=== PATIENT | male | born 1965 | race Caucasian/White ===

== ENCOUNTER 2017-03-30 01:37 | Inpatient (IN) ==
[2017-03-30] MEDS ORDERED: Ondansetron ODT 4 MG TAB.RAPDIS SL ONE (02:33)
[2017-03-30] MEDS ORDERED: 0.9 % Sodium Chloride 1,000 ML IVC ONE (02:34)
[2017-03-30] MEDS ORDERED: Ondansetron 4 MG/2 ML VIAL IVP ONE (02:34)
[2017-03-30 03:04] LABS: Basophils # 0.1 K/mcL (0.0-0.2); Basophils % 0.2 %; Hematocrit 44.9 % (37.5-50.1); Hemoglobin 15.2 g/dL (12.9-16.9); Immature Granulocytes % 0.7 % (0-4); Lymphocytes # 1.2 K/mcL (0.6-4.6); Mean Corpuscular HGB Conc 33.9 g/dL (31.6-35.5); Mean Corpuscular Hemoglobin 28.4 pg (28.0-33.3); Mean Corpuscular Volume 83.9 fL (83.0-100.0); Mean Platelet Volume 9.7 fL (9.4-12.4); Monocytes # 0.6 K/mcL (0.0-1.3); Monocytes % 2.4 %; Platelet Count 195 K/mcL (140-400); Red Blood Count 5.35 M/mcL (4.19-5.50); Red Cell Distribution Width 13.1 % (11.5-14.5); Segmented Neutrophils % 91.7 %
[2017-03-30 03:07] LABS: Neutrophils # 22.7 K/mcL (1.6-8.9)
[2017-03-30 03:22] LABS: Alanine Aminotransferase 57 Units/L (0-55); Albumin 3.9 g/dL (3.5-5.0); Albumin/Globulin Ratio 0.9 (1.1-2.2); Alkaline Phosphatase 102 Units/L (38-126); Aspartate Amino Transferase 35 Units/L (5-34); BUN/Creatinine Ratio 16 (6-26); Bilirubin,Direct 0.3 mg/dL (0.0-0.5); Bilirubin,Indirect 0.4 mg/dL (0.0-1.2); Bilirubin,Total 0.7 mg/dL (0.2-1.2); Blood Urea Nitrogen 16 mg/dL (8-26); Calcium 10.1 mg/dL (8.6-10.8); Carbon Dioxide 24 mEq/L (19-29); Chloride 102 mEq/L (98-109); Globulin 4.3 g/dL (2.4-3.5); Glucose 168 mg/dL (70-99); Osmolality,Calculated 285 (280-300); Potassium 4.2 mEq/L (3.5-4.5); Sodium 135 mEq/L (136-145); Total Protein 8.2 g/dL (6.0-8.3); eGFR For African Americans > 60 (> 60); eGFR For Non-African Americans > 60 (> 60)
[2017-03-30 03:23] LABS: Lipase < 10 Units/L (8-78); Platelet Estimate Normal (Normal)
[2017-03-30] MEDS ORDERED: Aspirin 81 MG TAB.CHEW PO STA (03:37)
[2017-03-30] MEDS ORDERED: *HR* Morphine 2 MG/ML SYRINGE IVP ONE (03:40)
[2017-03-30] MEDS ORDERED: *HR* Heparin 5,000 UNIT/ML VIAL IVP ONE (03:41)
[2017-03-30] MEDS ORDERED: *HR* Heparin 5,000 UNIT/ML VIAL IVP PRN ×2 (03:41)
[2017-03-30] MEDS ORDERED: Heparin 25,000 UNIT/500 ML D5W 25,000 UNIT/500 ML MLS IVC SCH (03:45)
--- NOTE | 2017-03-30 03:49 | Emergency Department Note ---
Disposition Clinical Impression: NSTEMI (non-ST elevated myocardial infarction), Splenic infarct Abdominal pain Qualifiers: Abdominal location: left upper quadrant Qualified Code(s): R10.12 - Left upper quadrant pain Disposition: Admitted As Inpatient Condition: Serious Time of Disposition: 04:57 Abdominal Pain HPI - General Chief Complaint: ED Abdominal Pain Stated Complaint: Pain in chest/abd Time Seen by Provider: 03/30/17 03:30 Source: patient Nursing Notes Reviewed: Yes Vital Signs Reviewed: Yes - History of Present Illness HPI Narrative: 51-year-old male presents to the emergency department with a complaint of severe left flank and left upper abdominal pain. Patient states that about 6 PM this evening he started feeling bad. Initially he just had pain throughout his head and both shoulders. It then moved down into his neck and back and chest. The pain then moved down into the epigastric area and left upper quadrant and left flank. He complains of a lot of nausea and belching. No productive vomiting. No shortness of breath or diaphoresis. No palpitations. No prior cardiac history. Patient does admit to heroin use. Pt Subjective Complaint: abdominal pain, flank pain, other (Head and shoulders and chest pain) Onset (ago): hour(s) (7) Consistency: constant, Worsening Location: LUQ, epigastric, L flank Pain Severity: moderate Pain Scale: 7 Quality: aching, dull, burning Radiation: none Migration to: L flank Improves with: nothing Worsens with: nothing Associated symptoms: Reports: nausea. Denies: vomiting, diarrhea, fever, chills , constipation, dysuria, hematemesis, hematochezia, melena, hematuria, anorexia , syncope Treatments prior to arrival: none - Related Data Previous Rx's Medication Instructions Recorded Clindamycin HCl [Cleocin HCl] 300 mg PO QID #40 capsule 05/17/16 cephALEXin [Keflex] 500 mg PO QID #40 capsule 05/17/16 Allergies Allergy/AdvReac Type Severity Reaction Status Date / Time No Known Allergies Allergy Verified 03/30/17 01:44 All systems ED: reviewed and negative except as stated. Constitutional: Denies: fever, chills, weakness ENT ED: Denies: ear pain, throat pain Cardiovascular: Reports: chest pain. Denies: palpitations, dyspnea on exertion , edema, syncope Respiratory: Denies: cough, dyspnea, wheezes, hemoptysis Gastrointestinal: Reports: abdominal pain, nausea. Denies: vomiting, diarrhea, constipation, hematemesis, melena, hematochezia Genitourinary: Denies: dysuria, frequency, hematuria Musculoskeletal: Reports: back pain, neck pain Integumentary: Denies: rash Neurological: Reports: headache. Denies: weakness, numbness, paresthesias, confusion Psychiatric: Denies: anxiety, depression Endocrine: Denies: fatigue Hematological/Lymphatic: Denies: easy bleeding, easy bruising, lymphadenopathy Abdominal Pain PMH - Past Medical History Medical history: Reports: hepatitis Male Surgical History: Reports: herniorrhaphy, orthopedic, other Psychiatric history: Reports: no psych history - Social History Smoking status: Current every day smoker Alcohol use: Reports: none Drug use: Reports: IV Drug Use Physical Exam - General Limitations: no limitations General appearance: alert, in no apparent distress - Head Head exam: atraumatic, normocephalic, normal inspection - Eye Eye exam: Present: normal appearance, PERRL, EOMI. Absent: scleral icterus, conjunctival injection - ENT ENT exam: normal exam, normal oropharynx, mucous membranes moist, TM's normal bilaterally, normal external ear exam - Neck Neck exam: Present: normal inspection, full ROM, trachea midline. Absent: tenderness, meningismus, lymphadenopathy - Chest Chest inspection: Present: normal inspection, symmetric chest wall rise. Absent : tenderness - Respiratory Respiratory exam: Present: normal lung sounds bilaterally. Absent: respiratory distress, wheezes, stridor, accessory muscle use - Cardiovascular Cardiovascular exam: Present: regular rate, normal rhythm, normal heart sounds - Abdominal Exam Abdominal exam: Present: soft, tenderness, hyperactive bowel sounds. Absent: distention, guarding, rebound, rigidity Abdominal tenderness: Present: LUQ, epigastrium, moderate - Extremities Exam Extremities exam: Present: normal inspection, full ROM. Absent: tenderness, pedal edema - Back Exam Back exam: Present: normal inspection, CVA tenderness (L). Absent: CVA tenderness (R) - Neurological Exam Neurological exam: Present: alert, oriented X3. Absent: motor sensory deficit - Psychiatric Psychiatric exam: Present: normal affect, normal mood - Skin Skin exam: Present: warm, dry, intact, normal color. Absent: cyanosis, diaphoresis Course Course Narrative: Patient presented with pain that started in his head and shoulders and moved down into the chest and into the epigastric area and left flank. Nausea with some dry heaves and belching. Workup revealed an elevated troponin. No acute changes on the initial EKG. Repeat EKG normal. - Consultations Consultation #1: He hospitalist, Dr. Mora, was consulted and accepted admission of the patient. Time: 04:45 Consultation #2: Advised Dr. Mora of the CT results. Patient already on heparin drip. Time: 06:45 Vital Signs Temperature 97.6 F 03/30/17 01:40 Pulse Rate 67 03/30/17 01:40 Respiratory Rate 18 03/30/17 01:40 Blood Pressure 131/82 03/30/17 01:40 O2 Sat by Pulse Oximetry 98 03/30/17 01:40 Temperature 97.6 F 03/30/17 01:40 Pulse Rate 67 03/30/17 01:40 Respiratory Rate 18 03/30/17 01:40 Blood Pressure 131/82 03/30/17 01:40 O2 Sat by Pulse Oximetry 98 03/30/17 01:40 Oxygen Delivery Oxygen Delivery Room Air Abdominal Pain - Medical Records Medical records reviewed: Yes I reviewed the patient's medical records. - Lab Data Lab results reviewed: Yes I reviewed the patient's lab results. Result diagrams: 03/30/17 02:55 03/30/17 02:55 Lab Results 03/30/17 03/30/17 03/30/17 Range/Units 02:10 02:55 02:55 WBC 24.7 H (4.3-11.1) K/mcL RBC 5.35 (4.19-5.50) M/mcL Hgb 15.2 (12.9-16.9) g/dL Hct 44.9 (37.5-50.1) % MCV 83.9 (83.0-100.0) fL MCH 28.4 (28.0-33.3) pg MCHC 33.9 (31.6-35.5) g/dL RDW 13.1 (11.5-14.5) % Plt Count 195 (140-400) K/mcL MPV 9.7 (9.4-12.4) fL Immature Gran % 0.7 (0-4) % Seg Neutrophils % 91.7 % Lymphocytes % 5.0 % Monocytes % 2.4 % Eosinophils % 0.0 % Basophils % 0.2 % Neutrophils # 22.7 H (1.6-8.9) K/mcL Lymphocytes # 1.2 (0.6-4.6) K/mcL Monocytes # 0.6 (0.0-1.3) K/mcL Eosinophils # 0.0 (0.0-0.6) K/mcL Basophils # 0.1 (0.0-0.2) K/mcL Platelet Estimate Normal (Normal) PT (9.4-12.1) Seconds INR APTT (26.0-36.0) Seconds Sodium 135 L (136-145) mEq/L Potassium 4.2 (3.5-4.5) mEq/L Chloride 102 (98-109) mEq/L Carbon Dioxide 24 (19-29) mEq/L BUN 16 (8-26) mg/dL Creatinine 0.98 (0.72-1.25) mg/dL Est GFR ( Amer) > 60 (> 60) Est GFR (Non-Af Amer) > 60 (> 60) BUN/Creatinine Ratio 16 (6-26) Glucose 168 H (70-99) mg/dL Calculated Osmolality 285 (280-300) Calcium 10.1 (8.6-10.8) mg/dL Total Bilirubin 0.7 (0.2-1.2) mg/dL Direct Bilirubin 0.3 (0.0-0.5) mg/dL Indirect Bilirubin 0.4 (0.0-1.2) mg/dL AST 35 H (5-34) Units/L ALT 57 H (0-55) Units/L Alkaline Phosphatase 102 (38-126) Units/L Troponin I (0-0.03) ng/mL Serum Total Protein 8.2 (6.0-8.3) g/dL Albumin 3.9 (3.5-5.0) g/dL Globulin 4.3 H (2.4-3.5) g/dL Albumin/Globulin Ratio 0.9 L (1.1-2.2) Lipase < 10 (8-78) Units/L Urine Color Yellow (Yellow) Urine Clarity Clear (Clear) Urine pH 6.5 (5.0-8.0) pH Units Ur Specific Lares 1.008 L (1.010-1.025) Urine Protein Negative (Neg-Trace) mg/dL Urine Glucose (UA) Normal (Normal) mg/dL Urine Ketones Negative (Negative) mg/dL Urine Blood Trace H (Negative) Urine Nitrite Negative (Negative) Urine Bilirubin Negative (Negative) Urine Urobilinogen Normal (Normal) mg/dL Ur Leukocyte Esterase Negative (Negative) Urine Microscopic RBC 0-3 (0-3) per hpf Urine Microscopic WBC 0-3 (0-3) per hpf Ur Squamous Epith Cells Many H (None-Few) per lpf Urine Bacteria Few (None-Few) per hpf Hyaline Casts None Seen (None-Few) per lpf Ur Culture Indicated? NO (NO) 03/30/17 03/30/17 Range/Units 02:55 02:55 WBC (4.3-11.1) K/mcL RBC (4.19-5.50) M/mcL Hgb (12.9-16.9) g/dL Hct (37.5-50.1) % MCV (83.0-100.0) fL MCH (28.0-33.3) pg MCHC (31.6-35.5) g/dL RDW (11.5-14.5) % Plt Count (140-400) K/mcL MPV (9.4-12.4) fL Immature Gran % (0-4) % Seg Neutrophils % % Lymphocytes % % Monocytes % % Eosinophils % % Basophils % % Neutrophils # (1.6-8.9) K/mcL Lymphocytes # (0.6-4.6) K/mcL Monocytes # (0.0-1.3) K/mcL Eosinophils # (0.0-0.6) K/mcL Basophils # (0.0-0.2) K/mcL Platelet Estimate (Normal) PT 11.6 (9.4-12.1) Seconds INR 1.1 APTT 24.6 L (26.0-36.0) Seconds Sodium (136-145) mEq/L Potassium (3.5-4.5) mEq/L Chloride (98-109) mEq/L Carbon Dioxide (19-29) mEq/L BUN (8-26) mg/dL Creatinine (0.72-1.25) mg/dL Est GFR ( Amer) (> 60) Est GFR (Non-Af Amer) (> 60) BUN/Creatinine Ratio (6-26) Glucose (70-99) mg/dL Calculated Osmolality (280-300) Calcium (8.6-10.8) mg/dL Total Bilirubin (0.2-1.2) mg/dL Direct Bilirubin (0.0-0.5) mg/dL Indirect Bilirubin (0.0-1.2) mg/dL AST (5-34) Units/L ALT (0-55) Units/L Alkaline Phosphatase (38-126) Units/L Troponin I 0.26 H* (0-0.03) ng/mL Serum Total Protein (6.0-8.3) g/dL Albumin (3.5-5.0) g/dL Globulin (2.4-3.5) g/dL Albumin/Globulin Ratio (1.1-2.2) Lipase (8-78) Units/L Urine Color (Yellow) Urine Clarity (Clear) Urine pH (5.0-8.0) pH Units Ur Specific Lares (1.010-1.025) Urine Protein (Neg-Trace) mg/dL Urine Glucose (UA) (Normal) mg/dL Urine Ketones (Negative) mg/dL Urine Blood (Negative) Urine Nitrite (Negative) Urine Bilirubin (Negative) Urine Urobilinogen (Normal) mg/dL Ur Leukocyte Esterase (Negative) Urine Microscopic RBC (0-3) per hpf Urine Microscopic WBC (0-3) per hpf Ur Squamous Epith Cells (None-Few) per lpf Urine Bacteria (None-Few) per hpf Hyaline Casts (None-Few) per lpf Ur Culture Indicated? (NO) - Radiology Data Radiology results reviewed: Yes I reviewed the patient's radiology results. Chest X-Ray 03/30/17 01:44 IMPRESSION: 1. No acute cardiopulmonary disease. D/ / Francois Parra MD / Francois Parra MD Interpreting Provider: Francois Parra MD Chest X-Ray 03/30/17 01:44 IMPRESSION: 1. No acute cardiopulmonary disease. D/ / Francois Parra MD / Francois Parra MD Interpreting Provider: Francois Parra MD Abdomen/Pelvis CT 03/30/17 04:59 IMPRESSION: 1. Geographic areas of low-attenuation in the spleen most likely represent infarct. 2. Esophageal wall thickening suggests esophagitis. 3. Urinary bladder wall thickening may indicate outlet obstruction given the presence of an enlarged prostate gland. D/ / Jagjit Spivey MD / Jagjit Spivey MD Interpreting Provider: Jagjit Spivey MD - EKG Data EKG attestation: Yes I reviewed and interpreted this EKG. EKG results narrative: Initial EKG shows a normal sinus rhythm with a heart rate of 71. There is questionable slight ST elevation in the inferior leads but less than 1 mm with no reciprocal changes. A repeat EKG 2 hours after the initial EKG is normal with no hint of inferior ST elevation. EKG shows normal: sinus rhythm Rate: normal Rhythm: NSR Interpretation: no acute changes, normal EKG Critical Care Time Critical Care Time: Yes Total Critical Care Time: 60 Attestation: Critical care performed: Time is exclusive of separately billable procedures. Time includes: direct patient care, patient reassessment, coordination of patient care, interpretation of data (laboratory data, radiology data, and respiratory data), review of patient's medical records, medical consultation and documentation of patient care. Procedures included in critical care time: Procedures excluded from critical care time:
[2017-03-30 03:56] LABS: INR 1.1; Prothrombin Time 11.6 Seconds (9.4-12.1)
[2017-03-30 03:58] LABS: Activated Partial Thrombo Time 24.6 Seconds (26.0-36.0)
[2017-03-30] MEDS ORDERED: GI Cocktail 40 ML EACH PO ONE ×2 (04:06→07:58)
[2017-03-30] MEDS ORDERED: *HR* HYDROmorphone (PF) 1 MG/ML SYRINGE IVP ONE (04:07)
[2017-03-30 04:54] LABS: Bilirubin,Urine Negative (Negative); Blood,Urine Trace (Negative); Clarity,Urine Clear (Clear); Color,Urine Yellow (Yellow); Glucose,Urine (UA) Normal (Normal); Ketones,Urine Negative (Negative); Leukocyte Esterase,Urine Negative (Negative); Nitrite,Urine Negative (Negative); PH,Urine 6.5 pH Units (5.0-8.0); Protein,Urine Negative (Neg-Trace); Specific Gravity,Urine 1.008 (1.010-1.025); Urobilinogen,Urine Normal (Normal)
[2017-03-30 04:57] LABS: Bacteria,Urine Few per hpf (None-Few); Hyaline Casts,Urine None Seen per lpf (None-Few); RBC,Urine 0-3 per hpf (0-3); Squamous Epithelial Cell,Urine Many per lpf (None-Few); WBC,Urine 0-3 per hpf (0-3)
[2017-03-30] MEDS ORDERED: Ondansetron 4 MG/2 ML VIAL IVP PRN (05:47)
[2017-03-30] MEDS ORDERED: Naloxone 0.4 MG/ML INJ IVP PRN (05:47)
[2017-03-30] MEDS ORDERED: *HR* OxyCODONE Immed Rel 5 MG TABLET PO PRN (05:47)
[2017-03-30] MEDS ORDERED: Nitroglycerin 0.4 MG TAB.SUBL SL ONE (07:57)
[2017-03-30] MEDS ORDERED: Nitroglycerin 0.4 MG TAB.SUBL SL PRN (07:59)
[2017-03-30] MEDS ORDERED: Nitroglycerin 25 MG/250 ML INFUS..BTL IVC SCH (08:00)
--- NOTE | 2017-03-30 08:01 | Cardiology Consult Note ---
<Liz Jain - Last Filed: 03/30/17 11:27> Date of Encounter: 03/30/17 Time of Encounter: 07:45 Assessment and Plan (1) Elevated troponin Current Visit: Yes Status: Acute Troponin 0.26, 1.55 in the setting of suspected acute endocarditis. No ischemic ECG changes. Reports epigastric burning and severe left flank/lower quadrant pain. CT abdomen demonstrated splenic infarcts. Recommend CT of head--will defer to primary service. Agree with IV heparin gtt. Await TTE findings to determine if STEVE is indicated. Agree with BLC and antibiotics. No indication for cardiac rehab at this juncture. (2) Splenic infarct Current Visit: Yes Status: Acute Likely secondary to endocarditis. (3) IV drug abuse Current Visit: Yes Status: Chronic Recommend CIWA protocol, will defer to hospitalist service. Reports last use of heroin was last night. Discussion w patient/family: The assessment and plan as outlined above was discussed with the patient and/or family members who expressed understanding and agreement. All questions were answered. Thank you for involving us in the care of your patient. Please call with any questions. The patient will be discussed and reviewed with Dr. Amado; changes to be made accordingly. History of Present Illness Consult date: 03/30/17 Requesting physician: Duane Garcia Consult reason: Elevated troponin Chief complaint: Epigastric pain History of present illness: Mr. Garcia is a 51 year old male with PMHx significant for GERD, chronic hepatitis C, tobacco use, and IVDA who presented to the ED with acute onset of epigastric/left-sided abdominal pain. He reports an episode of chest discomfort with bilateral arm pain yesterday that resolved without intervention. Upon arrival to ED initial troponin 0.26, no ischemic ECG changes were noted. GI cocktail given without improvement in epigastric pain/burning. He admits to daily IVDA with heroin. Pain was not improved with NTG. Past Med Surg Social Fam HX - Past Medical History Attestation: Yes The following information was validated with the patient. Source: patient Medical history: GERD, hepatitis Psychiatric history: no psych history - Past Surgical History Surgical History: non-contributory - Social History Smoking Status: Current every day smoker Packs per day: 1 ppd x30+ years Smokeless Tobacco Status: Yes Alcohol use: none Drug use: IV Drug Use Medications and Allergies No Known Home Drugs 03/30/17 [History] Allergies No Known Allergies Allergy (Verified 03/30/17 01:44) All Systems Review: A 10-system review of systems was performed and is negative for pertinent findings except as documented above in the HPI. - Cardiovascular Cardiovascular: as per HPI Physical Examination Vital Signs, Last 4 Hours Temp Pulse Resp BP Pulse Ox 03/30/17 07:31 98.6 F 69 18 159/96 99 03/30/17 06:59 18 143/96 General: Conversant HEENT: Atraumatic, Normocephaly Cardiac: Reg Rate and Rhythm, Normal S1 and S2 Lungs: Normal Breath Sounds Neuro: Alert and responsive Abdomen: Soft, Other (abdomen tender x4 quadrants) Extremities: No Edema, Normal Pulses, Other (scars left forearm, track fiore noted. ) Results 03/30/17 02:55 03/30/17 02:55 Active Medications Aspirin (Aspirin Ec) 81 mg PO DAILY [facility]IP[facility] Stop: 09/30/17 09:01 Atorvastatin Calcium (Lipitor) 40 mg PO HS [facility] Stop: 09/29/17 21:01 Heparin Sodium (Porcine) (Heparin) 4,000 unit IVP Q6HR PRN PRN Reason: SEE COMMENTS Stop: 09/29/17 03:42 Heparin Sodium (Porcine) (Heparin) 2,000 unit IVP Q6H PRN PRN Reason: SEE COMMENTS Stop: 09/29/17 03:42 Heparin Sodium/Dextrose (Heparin 25,000 Unit/500 Ml D5w) 25,000 unit in 500 mls @ 20.684 mls/hr IVC .Q24H PHILIPPE; 12 UNIT/KG/HR PRN Reason: Protocol Stop: 09/29/17 03:46 Last Admin: 03/30/17 04:03 Dose: 12 unit/kg/hr, 20.684 mls/hr Nitroglycerin (Nitroglycerin) 25 mg in 250 mls @ 3 mls/hr IVC .Q24H PHILIPPE; 5 MCG/ MIN PRN Reason: Protocol Stop: 09/29/17 08:01 Last Admin: 03/30/17 08:42 Dose: 5 mcg/min, 3 mls/hr Sodium Chloride (0.9 % Sodium Chloride) 1,000 mls @ 100 mls/hr IVC .Q10H [facility] Stop: 01/07/18 08:46 Vancomycin HCl 1,500 mg/ (Dextrose) 250 mls @ 166.67 mls/hr IVPB Q12H [facility] Stop: 09/29/17 11:01 Morphine Sulfate (Morphine Sulfate) 2 mg IVP Q4HR PRN PRN Reason: Severe Pain (7-10) Stop: 09/29/17 05:48 Last Admin: 03/30/17 08:07 Dose: 2 mg Naloxone HCl (Narcan) 0.4 mg IVP Q2MIN PRN PRN Reason: Opioid Reversal Stop: 09/29/17 05:48 Nicotine (Nicoderm) 21 mg TD DAILY [facility]IP[facility] PRN Reason: Protocol Stop: 09/29/17 09:01 Nitroglycerin (Nitroglycerin) 0.4 mg SL Q5MIN PRN PRN Reason: Chest Pain Stop: 09/29/17 08:00 Last Admin: 03/30/17 08:07 Dose: 0.4 mg Ondansetron HCl (Zofran) 4 mg IVP Q6HR PRN PRN Reason: Nausea And Vomiting Stop: 09/29/17 05:48 Pantoprazole Sodium (Protonix) 40 mg IVP DAILY [facility] Stop: 09/29/17 09:01 - Imaging and Cardiology Echo: pending - EKG Interpretation EKG results cardiology: personally reviewed Consult Discharge Plan - Plan Referrals: NO,PCP [Primary Care Provider] - <Chuyita Amado - Last Filed: 03/30/17 12:22> Date of Encounter: 03/30/17 Assessment and Plan Discussion w patient/family: The assessment and plan as outlined above was discussed with the patient and/or family members who expressed understanding and agreement. All questions were answered. Thank you for involving us in the care of your patient. Please call with any questions. History of Present Illness History of present illness: Mr. Garcia is a 51 year old male All Systems Review: A 10-system review of systems was performed and is negative for pertinent findings except as documented above in the HPI. Physical Examination Vital Signs, Last 4 Hours Temp Pulse Resp BP Pulse Ox 03/30/17 11:48 99.4 F 56 18 125/62 98 Results 03/30/17 02:55 03/30/17 02:55 Lab Results 03/30/17 03/30/17 03/30/17 08:20 08:20 08:20 APTT 45.6 H D Magnesium 2.0 Troponin I 1.55 H* B-Natriuretic Peptide 03/30/17 08:20 APTT Magnesium Troponin I B-Natriuretic Peptide 47 - Attending Attestation I examined this patient and my medical decision-making was reviewed with the BANKING SERVICES CLERK/PA/Advanced Practice Nurse/Resident Physician. I agree with the documented findings, disposition and treatment plan. Mr. Garcia presents with chest and abdominal pain associated with elevated troponin and leukocytosis along with splenic infarcts on CT Ab/P. This is in the setting of active IVDU, admitting to heroin use daily. Elevated troponin in this setting and the clinical picture is strongly suggestive of endocarditis. I reviewed his echo demonstrating normal LV EF without SWMA. There are no mobile echodensities seen attached to the valves and no significant regurgitation. However, the ascending aorta is echogenic and there is an echodensity along the anterior wall of the proximal ascending aorta. The aortic valve is focally sclerotic. These findings suggest aortic root abscess. This was discussed with the Hospitalist taking care of the patient, Dr. Fox. I suggested performing a chest CT and head CT. Blood cultures have already been drawn and he has been started on Abx. He is hemodynamically stable. He will require a STEVE given suboptimal surface echo image quality. May consider transfer to a tertiary care center.
[2017-03-30] MEDS: *HR* Morphine 2 MG/ML SYRINGE IVP PRN ×2 (08:07→12:34)
--- NOTE | 2017-03-30 08:13 | Internal Med History&Physical ---
Date of Encounter: 03/30/17 Time of Encounter: 07:45 Assessment and Plan (1) NSTEMI (non-ST elevated myocardial infarction) Current visit: Yes Status: Acute Non-ST elevation [place] Suspicion for Infective Endocarditis - in view of IV drug use Cultures pending, continue empiric Vancomycin, continue IV fluids Echocardiogram pending EKG - sinus rhythm with no acute ST-T changes Troponin - 1.55, trend Chest x-ray - no acute process Continue IV Heparin, aspirin, statin Nitroglycerin sublingual when necessary, IV fluids, IV morphine when necessary Cardiology consult Cardiac telemetry Labs in a.m. (2) Splenic infarct Current visit: Yes Status: Acute Splenic infarct seen on CT abdomen - possibly due to embolic disease possibly from endocarditis No history of trauma LDH elevated, normal lactic acid White count 24.7 Continue supportive care - hemodynamically stable Gen. surgery consult if needed (3) Chronic hepatitis C Current visit: Yes Status: Chronic Chronic hep C, Needs outpatient follow-up Qualifiers: Hepatic coma status: without hepatic coma Qualified Code(s): B18.2 - Chronic viral hepatitis C (4) IV drug abuse Current visit: Yes Status: Chronic Chronic IV drug abuse, admits to using heroin Counseled about cessation (5) Tobacco abuse Current visit: Yes Status: Chronic Counseled about cessation, nicotine patch Internal Medicine - H&P: HPI Chief complaint: Abdominal pain Admitted From: Emergency Dept Plans for Post Hospital Care: Home History of present illness: Mr. Garcia is a 51 year old male with PMH of GERD and Chronic Hepatitis C. Patient presents to the ED with complaints of left upper abdominal pain and left flank pain. Symptoms started a few hours prior to arrival in the ED. He states that he suddenly started feeling "bad". He also describes having epigastric and substernal chest pain which is also moving down to his left upper quadrant and his left flank and left back. Pain also seemed to radiate to his neck. Patient states his abdominal pain is almost constant and is aching and burning kind of pain. Rates it 7 out of 10. Symptoms are gradually worsening. No aggravating or alleviating factors. Patient also has associated nausea but no vomiting or diarrhea. Complains of subjective fever briefly. Patient denies shortness of breath denies cough or dizziness. No other associated symptoms. Patient is a daily IV drug user and admits to using heroin. He also smokes about a pack daily. Initial evaluation revealed elevated troponin, elevated white count and also splenic infarct seen on CT abdomen. On examination patient is awake and alert. Not in any distress. Able to provide history. No family members at bedside. Patient is being admitted for non-ST elevation WI. We will continue IV heparin. There is high suspicion for infective endocarditis and he will be on empiric antibiotics. Splenic infarct could be a result of the infective embolus possibly. Patient has been explained about his guarded condition and care. Understood and agreed. No unanswered questions. CODE STATUS full code. Past Med Surg Social Fam HX - Past Medical History Medical history: hepatitis Psychiatric history: no psych history - Social History Smoking Status: Current every day smoker Smokeless Tobacco Status: Yes Alcohol use: none Drug use: IV Drug Use Internal Medicine - H&P: Meds Clindamycin HCl [Cleocin HCl] 300 mg PO QID #40 capsule 05/17/16 [Rx] cephALEXin [Keflex] 500 mg PO QID #40 capsule 05/17/16 [Rx] Allergies No Known Allergies Allergy (Verified 03/30/17 01:44) All Systems PM: A 10-system review of systems was performed and is negative for pertinent findings except as documented above in the HPI. - Constitutional Constitutional: as per HPI, fatigue, fever(s), weakness - EENT Eyes: no blurry vision - Cardiovascular Cardiovascular ROS IM: chest pain, lightheadedness, no dyspnea, no dyspnea on exertion, no edema, no orthopnea, no paroxysmal nocturnal dyspnea, no syncope - Respiratory Respiratory: no cough, no dyspnea, no hemoptysis, no dyspnea on exertion, no wheezing, no chest congestion - Gastrointestinal Gastrointestinal: abdominal pain, heartburn, no bloating, no cramping, no diarrhea, no dysphagia, no melena, no tenesmus, no vomiting - Genitourinary Genitourinary ROS male: no dysuria - Neurological Neurological ROS: no abnormal gait, no abnormal speech, no dizziness, no numbness, no tingling - Constitutional Vitals: Temp Pulse Resp BP Pulse Ox 98.6 F 69 18 159/96 99 03/30/17 07:31 03/30/17 07:31 03/30/17 07:31 03/30/17 07:31 03/30/17 07:31 General appearance: Present: A&O X 3, no acute distress, answers questions appropriately Exam: Ill-appearing - Head Head exam: Present: atraumatic - ENT ENT exam: Present: mucous membranes dry - Neck Neck exam general surgery: Present: supple - Respiratory Respiratory exam: Present: CTAB. Absent: rales, rhonchi, tachypnea - Cardiovascular Cardiovascular exam: Present: bradycardia, +S1, +S2. Absent: clicks, systolic murmur - GI/Abdominal GI/Abdominal exam: Present: soft, tenderness (Mild left upper quadrant and left flank tenderness ), no peritoneal signs. Absent: distended, firm, guarding, hepatomegaly, rigid - Extremities Exam Extremities exam: Present: radial pulses palpable and symetrical. Absent: cyanotic, tenderness - Neurological Exam Neurological exam: Present: alert, oriented X3, no focal deficits Internal Med - H&P Results - Labs CBC & Chem 7: 03/30/17 02:55 03/30/17 02:55
[2017-03-30] MEDS ORDERED: 0.9 % Sodium Chloride 1,000 ML IVC SCH (08:45)
[2017-03-30] MEDS ORDERED: Nicotine 21 MG PATCH.TD24 TD SCH (09:00)
[2017-03-30] MEDS ORDERED: Pantoprazole 40 MG VIAL IVP SCH (09:00)
[2017-03-30] MEDS ORDERED: Vancomycin 2,000 MG in D5% in Water 500 ML IVPB SCH (09:00)
[2017-03-30] MEDS ORDERED: Vancomycin 1,500 MG in D5% in Water 250 ML IVPB SCH (11:00)
[2017-03-30] MEDS ORDERED: *HR* HYDROmorphone (PF) 1 MG/ML SYRINGE IVP PRN (15:00)
[2017-03-30 16:46] VITALS: BP 157/91
[2017-03-30] MEDS ORDERED: Aminoglycoside Consult 1 EACH MC ONE (16:59)
--- NOTE | 2017-03-30 17:22 | Event Note ---
Date of Encounter: 03/30/17 Time of Encounter: 16:20 Called by patient's nurse, stating that patient has pulled out his IV line twice and has been threatening to leave AGAINST MEDICAL ADVICE. CT chest with contrast are pending. As per cardiology recommendations, patient requires further evaluation of his possible aortic root abscess. CT of the brain does not show any acute intracranial process. Patient initially stated that the IV morphine was not helping his pain. We then added Dilaudid, and patient stated that he still was in a lot of pain and wanted to use his heroin instead . I had earlier explained to patient and also his mother about his guarded condition, guarded prognosis and plan of care. They understood and agreed. They were also explained about need for possible transfer to a higher facility. Patient's troponin has bumped up, his IV heparin has been continued. I called [facility] transfer center to transfuse patient under cardiology and cardiothoracic. [facility] physicians have not yet called me back. In the meantime patient has pulled out his IV line again. He wants to leave AGAINST MEDICAL ADVICE. The nurses and staff tried to convince him to stay. I have also talked to the patient and explained to him that he is in no condition to leave the hospital. I have explained to him about possibility of given his condition. Patient understood and agreed. He states he needs more pain medication as he is very tolerant to pain. Again he mentions that he will uses his heroin. We tried to contact his mother again, but she had already left the hospital stating that she "has given up on him". Patient refuses to stay no matter how much we try to convince him. He has signed the AMA papers and left. DISCHARGE CONDITION : GUARDED.
--- NOTE | 2017-03-31 07:49 | Discharge Summary ---
Date of Encounter: 03/30/17 Time of Encounter: 16:30 - Discharge Diagnosis (1) Acute infective endocarditis Status: Acute Comments: High suspicion for acute infective endocarditis - causing patient's symptoms Likely causing splenic infarct and elevated troponin Blood cultures had been drawn Empiric IV vancomycin started Echocardiogram suspicious for aortic root abscess CT angiogram of the chest - pending - could not be done as patient left AGAINST MEDICAL ADVICE [facility] transfer center called back stating they accepted the patient, but patient had already left AGAINST MEDICAL ADVICE Qualifiers: Infective endocarditis organism: bacterial Qualified Code(s): I33.0 - Acute and subacute infective endocarditis (2) NSTEMI (non-ST elevated myocardial infarction) Status: Acute (3) Splenic infarct Status: Acute (4) Chronic hepatitis C Status: Chronic Qualifiers: Hepatic coma status: without hepatic coma Qualified Code(s): B18.2 - Chronic viral hepatitis C (5) IV drug abuse Status: Chronic (6) Tobacco abuse Status: Chronic - Discharge Medications Home Medications: No Known Home Drugs 03/30/17 [History] Allergies/Adverse Reactions: Allergies No Known Allergies Allergy (Verified 03/30/17 01:44) Procedures/tests Complete & Pending: Procedures Performed prior 72 hours Category Date Time Status CT head/brain wo con [CT] Stat Cat Scan 03/30/17 12:23 Completed EV echocardiogram Routine Y 03/30/17 06:52 Completed Date of admission: 03/30/17 05:47 Primary care physician: PCP NO Consults: 03/30/17 05:49 Consult to Cardiology [CONS] Routine Comment: Consulting Provider: [facility] [place] Reason for Consult: please evaluate this patient with chest pain and elevated trop for further management. thank you Call Completed: No Anticipated date of discharge: 03/30/17 - Patient Status Disposition: Left Against Medical Advice Condition: Serious - Discharge Instructions Follow Up With: NO,PCP [Primary Care Provider] - - Diet and Activity Diet: low fat, low cholesterol Hospital course: Mr. Garcia is a 51 year old male Time spent discussing smoking cessation with patient: 3 to 10 minutes - Time Spent with Patient Total time spent providing and/or coordinating discharge services: Greater than 30 minutes - Constitutional Vitals: Temp Pulse Resp BP Pulse Ox 98.2 F 67 18 157/91 100 03/30/17 16:42 03/30/17 16:42 03/30/17 16:42 03/30/17 16:42 03/30/17 16:42 General appearance: Present: disheveled, A&O X 3, no acute distress, answers questions appropriately - Head Head exam: Present: atraumatic - Neck Neck exam general surgery: Present: supple - Respiratory Respiratory exam: Present: CTAB. Absent: rales, rhonchi, wheezes - Cardiovascular Cardiovascular exam: Present: +S1, +S2, systolic murmur, tachycardia - GI/Abdominal GI/Abdominal exam: Present: soft, tenderness (Left upper quadrant and left flank tenderness). Absent: distended, firm, guarding - Extremities Exam Extremities exam: Present: radial pulses palpable and symetrical. Absent: cyanotic, pedal edema - Neurological Exam Neurological exam: Present: alert, oriented X3, no focal deficits
[2017-03-31] MEDS ORDERED: Aspirin Enteric Coated 81 MG Tablet PO SCH (09:00)
--- NOTE | 2017-04-01 10:09 | Electrocardiograph Report ---
[address] [place], [place] [address] Test Date: 2017-03-30 Pat Name: Lloyd Garcia Department: 105 Room: 2NE32 Gender: M Client Service Consultant: ISIAH : 1965 Requested By: Lev Kerr Order Number: [id number] Reading MD: Ravinedr Jimenez MD Measurements Intervals [place] Rate: 71 P: 18 WV: 135 QRS: 26 QRSD: 90 T: 35 QT: 373 QTc: 395 Interpretive Statements SINUS RHYTHM Electronically Signed On 04-01-2017 10:08:12 EDT by Ravinder Jimenez MD
--- NOTE | 2017-04-01 15:58 | Electrocardiograph Report ---
[address] [address] Test Date: 2017-03-30 Pat Name: Lloyd Garcia Department: 102 Room: [facility] Gender: M Business Analysis Specialist: Fredy : 1965 Requested By: Kong Medley Order Number: [id number] Reading MD: Rafiq Huntley Measurements Intervals [place] Rate: 62 P: 45 OR: 130 QRS: 24 QRSD: 92 T: 42 QT: 407 QTc: 411 Interpretive Statements SINUS RHYTHM WITH SINUS ARRHYTHMIA Electronically Signed On 04-01-2017 15:56:24 EDT by Rafiq Huntley
== END 2017-03-30 17:00 | disposition left against medical advice (07) | DRG 280 ==
LOC: 2NENU 01:37 → EMEROO 01:37 → 2NENU 05:27
PROVIDERS: ADMIT Internal Medicine Endocrinology, Diabetes & Metabolism; ATTEND Internal Medicine